=== PATIENT | female | born 1980 | race Caucasian/White ===

== ENCOUNTER 2018-07-08 00:47 | Emergency (ER) | payer OTHER ==
[~2018-07-08] VITALS: Ht 175.3 cm; Wt 99.8 kg
[~2018-07-08 00:47] MED LIST: CEFU500T30 PO; FLINTSTONES CO1 EACH PO; Iron Chews15 MG PO
[2018-07-08] MEDS ORDERED: BIRTH CONTROL (01:09)
== END 2018-07-08 02:51 | disposition home or self-care (01) ==
LOC: ER 00:47
DX: M79.661 Pain in right lower leg (principal); Z91.041 Radiographic dye allergy status; Z91.048 Other nonmedicinal substance allergy status; Z87.891 Personal history of nicotine dependence
CPT/HCPCS: 93971; 96372; 99283-25

== ENCOUNTER → 2018-12-08 | Outpatient (CLI) | payer OTHER ==
[~2018-12-08] MED LIST changes: +BIRTH CONTROL
[2018-12-10 14:06] LABS: HPV 16 Negative (Negative); HPV 18 Negative (Negative); HPV OTHER HR TYPES Negative (Negative)
== END | disposition home or self-care (01) ==
LOC: LAB 15:29 → LAB SHORT 15:29
PROVIDERS: Obstetrics & Gynecology
DX: Z01.419 Encounter for gynecological examination (general) (routine) without abnormal findings (principal)
CPT/HCPCS: 87624; G0123

== ENCOUNTER 2020-06-25 08:58 | Emergency (ER) | payer OTHER ==
[~2020-06-25] VITALS: Ht 175.3 cm; Wt 99.8 kg
[2020-06-25 10:42] LABS: BASOPHILS ABSOLUTE AUTO 0.06 K/mm3 (0.00-0.23); BASOPHILS PERCENT AUTO 1 % (0-2); EOSINOPHILS ABSOLUTE AUTO 0.15 K/mm3 (0.00-0.68); EOSINOPHILS PERCENT AUTO 1 % (0-6); Hematocrit 43.5 % (33.0-51.0); Hemoglobin 13.6 g/dL (11.5-16.0); IMMATURE GRAN ABSOLUTE AUTO 0.04 K/mm3 (0.00-0.10); IMMATURE GRAN PERCENT AUTO 0 % (0-1); LYMPHOCYTES ABSOLUTE AUTO 2.66 K/mm3 (0.84-5.20); LYMPHOCYTES PERCENT AUTO 24 % (21-46); MONOCYTES ABSOLUTE AUTO 0.87 K/mm3 (0.16-1.47); MONOCYTES PERCENT AUTO 8 % (4-13); Mean Corpuscular HGB 29.2 pg (26.0-34.0); Mean Corpuscular HGB Conc 31.3 g/dL (31.5-36.5); Mean Corpuscular Volume 94 fL (80-100); Mean Platelet Volume 10.4 fL (9.1-12.4); NEUTROPHILS PERCENT AUTO 66 % (41-73); Platelet Count 338 K/mm3 (150-400); RDW Coefficient Variation 12.3 % (11.7-14.2); RDW Standard Deviation 42.5 fL (35.1-46.3); Red Blood Cell Count 4.65 M/mm3 (3.80-5.20); White Blood Cell Count 11.08 K/mm3 (4.00-11.30)
[2020-06-25 10:54] LABS: Alanine Aminotransfer (ALT/SGP 31 U/L (12-78); Albumin, Blood 3.1 g/dL (3.4-5.0); Albumin/Globulin Ratio 0.6 (0.8-1.8); Alk Phos 72 U/L (50-136); Anion Gap 9 mmol/L (6-16); Aspartate Aminotrans (AST/SGOT 28 U/L (12-37); Bilirubin, Total 0.5 mg/dL (0.1-1.0); Blood Urea Nitrogen 12 mg/dL (8-24); Bun/Creatinine Ratio 15.4 (12.0-20.0); CO2, Blood 19 mmol/L (21-32); Chloride, Blood 110 mmol/L (98-108); Creatinine, Blood 0.78 mg/dL (0.40-1.00); Glomerular Filtration Rate >60 (60-); Glucose, Blood 96 mg/dL (70-99); Potassium, Blood 4.4 mmol/L (3.5-5.5); Sodium, Blood 138 mmol/L (136-145); Total Protein, Blood 8.1 g/dL (6.4-8.2)
[2020-06-25 10:55] LABS: Source, Urine Clean Catch
[2020-06-25 11:15] LABS: Appearance, Urine Hazy (Clear); Bilirubin, Urine Neg (Neg); Blood, Urine 3+ (Neg); Color, Urine Yellow (P-Yellow); Glucose Qualitative, Urine Neg (Neg); Ketones, Urine Neg (Neg); Leukocyte Esterase, Urine 3+ (Neg); Nitrite, Urine Pos (Neg); Protein, Urine 3+ (Neg); Urobilinogen, Urine NORM (Normal)
[2020-06-25 11:37] LABS: Bacteria Many /hpf; Red Blood Cells, Urine 50-100 /hpf (0-2); Squamous Epithelial Cells Few /hpf (Few); White Blood Cells, Urine 50-100 /hpf (0-5)
[2020-06-25] MEDS ORDERED: CEFP200 PO (12:01)
== END 2020-06-25 12:49 | disposition home or self-care (01) ==
LOC: ER 08:58
PROVIDERS: Emergency Medicine
DX: N12 Tubulo-interstitial nephritis, not specified as acute or chronic (principal); Z91.09 Other allergy status, other than to drugs and biological substances; Z91.040 Latex allergy status; Z79.3 Long term (current) use of hormonal contraceptives; Z87.891 Personal history of nicotine dependence
CPT/HCPCS: 36415; 76770; 80053; 81001; 83690; 85025; 87077; 87086; 87186; 96365; 96375; 99284-25; J0696; J2405; J3010; J7030

== ENCOUNTER → 2020-12-31 | Outpatient (CLI) | payer OTHER ==
[~2020-12-31] MED LIST changes: +CEFP200 PO
== END | disposition home or self-care (01) ==
LOC: LAB SHORT 15:38
DX: J02.9 Acute pharyngitis, unspecified (principal)
CPT/HCPCS: 87081

== ENCOUNTER 2024-08-26 09:43 | Emergency (ER) | payer OTHER ==
[~2024-08-26] VITALS: Ht 175.3 cm; Wt 104.3 kg
[2024-08-26 12:32] LABS: Albumin, Blood 3.3 g/dL (3.4-5.0); Albumin/Globulin Ratio 0.8 (0.8-1.8); Bilirubin, Total 0.4 mg/dL (0.1-1.0); Bun/Creatinine Ratio 13.8 (12.0-20.0); Calcium, Blood 8.6 mg/dL (8.5-10.1); Creatinine, Blood 0.87 mg/dL (0.40-1.00); Globulin, Blood 4.3 g/dL (2.2-4.0); Potassium, Blood 4.5 mmol/L (3.5-5.5); Total Protein, Blood 7.6 g/dL (6.4-8.2)
[2024-08-26] MEDS ORDERED: MECL25 PO (12:48)
[2024-08-26 13:08] VITALS: BP 136/89
== END 2024-08-26 13:16 | disposition home or self-care (01) ==
LOC: ER 09:43
PROVIDERS: Student in an Organized Health Care Education/Training Program
DX: H81.399 Other peripheral vertigo, unspecified ear (principal); Z79.3 Long term (current) use of hormonal contraceptives; Z87.891 Personal history of nicotine dependence
CPT/HCPCS: 70450; 80053; 99284-25